=== PATIENT | male | born 1970 | race Caucasian/White ===

== ENCOUNTER 2022-01-12 00:15 | Observation (INO) | payer SELFPAY ==
[2022-01-12] MEDS ORDERED: Dextrose 50% Abboject 50 ML SYRINGE SLOW IVP PRN (00:28)
[2022-01-12] MEDS ORDERED: HumaLOG 300 UNITS/3 ML VIAL SC PRN ×2 (00:28)
[2022-01-12] MEDS ORDERED: Acetaminophen 325 MG TAB PO PRN (00:28)
[2022-01-12] MEDS ORDERED: Ondansetron ODT 4 MG TAB PO PRN (00:28)
[2022-01-12] MEDS ORDERED: Dextrose 5% in Water 1,000 ML IV PRN (00:28)
[2022-01-12] MEDS ORDERED: Nitroglycerin 0.4 MG TAB (25 Tab Bottle) SL PRN (00:28)
[2022-01-12] MEDS ORDERED: Ondansetron PF 4 MG/2 ML Vial IVP PRN (00:28)
[2022-01-12] MEDS ORDERED: hydrOXYzine 10 MG TAB PO PRN (00:36)
[2022-01-12 00:39] VITALS: BMI 32.1
[2022-01-12 05:20] LABS: Hemoglobin A1c 6.5 % (4.0-6.0)
[2022-01-12 05:32] LABS: Troponin I 0.044 ng/mL (< 0.028)
[2022-01-12] MEDS ORDERED: metFORMIN 500 MG TAB PO SCH ×3 (08:00→17:00)
[2022-01-12] MEDS ORDERED: Famotidine 20 MG TAB PO SCH (09:00)
[2022-01-12] MEDS ORDERED: Clopidogrel Bisulfate 75 MG TAB PO SCH (09:00)
[2022-01-12] MEDS ORDERED: Enoxaparin Sodium 40 MG/0.4 ML SYRINGE SC SCH (09:00)
[2022-01-12] MEDS ORDERED: Aspirin 81 mg Enteric Coated Tablet PO SCH (09:00)
[2022-01-12] MEDS ORDERED: Losartan 25 MG TAB PO SCH (09:00)
[2022-01-12] MEDS ORDERED: Fenofibrate 48 MG TAB PO SCH (09:00)
[2022-01-12 10:39] LABS: Troponin I 0.019 ng/mL (< 0.028)
[2022-01-12 12:18] VITALS: BP 173/91; TEMP 97.6
[2022-01-12] MEDS ORDERED: Atorvastatin Calcium 40 MG TAB PO SCH (21:00)
== END 2022-01-12 16:50 | disposition home or self-care (01) ==
LOC: 2NO 00:19
PROVIDERS: ADMIT Family Medicine; ATTEND Family Medicine
DX: R41.82 Altered mental status, unspecified (principal); I25.118 Atherosclerotic heart disease of native coronary artery with other forms of angina pectoris; E11.9 Type 2 diabetes mellitus without complications; I10 Essential (primary) hypertension; I25.2 Old myocardial infarction; E78.5 Hyperlipidemia, unspecified; F17.210 Nicotine dependence, cigarettes, uncomplicated; Z86.73 Personal history of transient ischemic attack (TIA), and cerebral infarction without residual deficits; Z79.02 Long term (current) use of antithrombotics/antiplatelets; Z79.82 Long term (current) use of aspirin; Z79.899 Other long term (current) drug therapy; Z88.5 Allergy status to narcotic agent; Z88.8 Allergy status to other drugs, medicaments and biological substances; Z95.5 Presence of coronary angioplasty implant and graft
CPT/HCPCS: 36415; 36416; 70551; 80061; 83036; 84484; 94760; 96372; G0378; J1650

== ENCOUNTER 2022-08-02 04:33 | Inpatient (IN) | payer SELFPAY ==
[2022-08-02] MEDS ORDERED: Nitroglycerin 0.4 MG TAB 1 EACH ONE (04:50)
[2022-08-02] MEDS ORDERED: Metoprolol Tartrate 5 MG/5 ML VIAL ONE (04:50)
[2022-08-02] MEDS ORDERED: Nitroglycerin 2% Ointment 1 INCH/1 GM Packet ONE (04:50)
[2022-08-02 05:37] LABS: #Eosinphils 0.2 thou/uL (0.0-0.7); #Lymphocytes 1.5 thou/uL (1.20-3.40); #Monocytes 0.5 thou/uL (0.11-0.59); #Neutrophils 6.5 thou/uL (1.40-6.50); %Basophils 0.4 % (0.0-1.0); %Eosinophils 2.1 % (0.0-10.0); %Lymphocytes 17.2 % (21.0-51.0); %Monocytes 5.8 % (0.0-10.0); %Neutrophils 74.5 % (42.0-75.0); Hemoglobin 13.4 g/dL (14.0-18.0); Mean Corpuscular HGB CONC 31.7 g/dL (32.0-36.0); Mean Corpuscular Hemoglobin 24.8 pg (27.0-31.0); Mean Corpuscular Volume 78.3 fl (78.0-98.0); Mean Platelet Volume 7.3 fL (7.4-10.4); Platelet Count 354 10x3/uL (130-400); RBC Distribution Width 14.9 % (11.5-14.5); White Blood Cell (WBC) Count 8.8 10x3/uL (4.8-10.8)
[2022-08-02 05:48] LABS: Prothrombin Time 13.1 sec (12.0-14.7)
[2022-08-02 05:49] LABS: PTT 26.6 sec (22.9-36.1)
[2022-08-02 05:56] LABS: ALT (SGPT) 28 U/L (8-55); AST (SGOT) 17 U/L (5-34); Albumin 3.7 g/dL (3.5-5.0); Alkaline Phosphatase 149 U/L (40-110); Anion Gap 16 mmol/L (10-20); BUN (Urea Nitrogen) 11 mg/dL (8.4-25.7); Bilirubin, Total 0.2 mg/dL (0.2-1.2); Calc. Creatinine Clearance 0 mL/min (70-130); Calcium 9.6 mg/dL (7.8-10.44); Carbon Dioxide 23 mmol/L (22-29); Chloride 100 mmol/L (98-107); Estimated GFR 98; Globulin 3.1 g/dL (2.4-3.5); Glucose 338 mg/dL (70-105); Lipase 5 U/L (8-78); Potassium 3.8 mmol/L (3.5-5.1); Protein, Total 6.8 g/dL (6.0-8.3); Sodium 135 mmol/L (136-145)
[2022-08-02 06:23] LABS: CKMB 5.6 ng/mL (0-6.6)
[2022-08-02] MEDS ORDERED: Acetaminophen 500 MG TAB ONE (07:08)
[2022-08-02] MEDS ORDERED: Ondansetron PF 4 MG/2 ML Vial IVP PRN (07:15)
[2022-08-02] MEDS ORDERED: Senokot S 8.6-50 MG TAB PO PRN (07:15)
[2022-08-02] MEDS ORDERED: hydrALAZINE 20 MG/ML VIAL SLOW IVP PRN (07:23)
[2022-08-02] MEDS ORDERED: Dextrose 5% in Water 1,000 ML IV PRN (07:24)
[2022-08-02] MEDS ORDERED: Dextrose 50% Abboject 50 ML SYRINGE SLOW IVP PRN (07:24)
[2022-08-02] MEDS ORDERED: Morphine 2 MG/ML VIAL SLOW IVP PRN (07:59)
[2022-08-02 08:24] LABS: Troponin I 0.344 ng/mL (< 0.028)
[2022-08-02] MEDS ORDERED: Losartan 25 MG TAB PO SCH (09:00)
[2022-08-02] MEDS ORDERED: Metoprolol Tartrate 50 MG TAB PO SCH ×2 (09:00→18:45)
[2022-08-02 09:45] VITALS: BMI 34.7
[2022-08-02] MEDS ORDERED: Ipratropium/Albuterol 3 ML NEB NEB PRN (10:01)
[2022-08-02] MEDS ORDERED: Nicotine 21 MG PATCH TD SCH ×2 (10:15→10:30)
[2022-08-02 12:19] LABS: Troponin I 0.366 ng/mL (< 0.028)
[2022-08-02] MEDS: Famotidine/PF 20 mg/2ml Vial SLOW IVP SCH ×2 (15:51→21:17)
[2022-08-02] MEDS: Fenofibrate 48 MG TAB PO SCH (15:51)
[2022-08-02] MEDS: Aspirin 81 mg Enteric Coated Tablet PO SCH (15:51)
[2022-08-02] MEDS: Clopidogrel Bisulfate 75 MG TAB PO SCH (15:51)
[2022-08-02 16:56] LABS: Acetaminophen Less than 10.0 mcg/mL (10.0-30.0); Alcohol Less than 10 mg/dL (Less than 10); Salicylate Less than 8.0 mg/dL (15.0-30.0)
[2022-08-02] MEDS: Nitroglycerin 2% Ointment 1 INCH/1 GM Packet TOP SCH (17:39)
[2022-08-02] MEDS ORDERED: Nitroglycerin 0.4 MG TAB (25 Tab Bottle) ONE (17:58)
[2022-08-02] MEDS ORDERED: Nitroglycerin 0.4 MG TAB (25 Tab Bottle) SL PRN (18:04)
[2022-08-02] MEDS ORDERED: Morphine 4 MG/ML VIAL SLOW IVP SCH (18:15)
[2022-08-02] MEDS ORDERED: hydrALAZINE 20 MG/ML VIAL SLOW IVP SCH (18:15)
[2022-08-02] MEDS: Metoprolol Tartrate 50 MG TAB PO SCH (19:05)
[2022-08-02] MEDS ORDERED: Atorvastatin Calcium 40 MG TAB PO SCH (21:00)
[2022-08-02] MEDS: Enoxaparin 120 MG/0.8 ML SYRINGE SC SCH (21:16)
[2022-08-02] MEDS: Acetaminophen 325 MG TAB PO PRN (21:17)
[2022-08-02] MEDS: HumaLOG 300 UNITS/3 ML VIAL SC PRN (21:17)
[2022-08-02] MEDS: glipiZIDE 5 MG TAB PO SCH (21:17)
[2022-08-03] MEDS: HumaLOG 300 UNITS/3 ML VIAL SC PRN ×3 (00:06→12:21)
[2022-08-03 05:08] LABS: #Eosinphils 0.2 thou/uL (0.0-0.7); #Lymphocytes 2.5 thou/uL (1.20-3.40); #Monocytes 0.6 thou/uL (0.11-0.59); #Neutrophils 4.8 thou/uL (1.40-6.50); %Basophils 0.3 % (0.0-1.0); %Eosinophils 2.9 % (0.0-10.0); %Monocytes 7.2 % (0.0-10.0); %Neutrophils 58.6 % (42.0-75.0); Hemoglobin 13.1 g/dL (14.0-18.0); Mean Corpuscular HGB CONC 32.3 g/dL (32.0-36.0); Mean Corpuscular Volume 77.5 fl (78.0-98.0); Mean Platelet Volume 7.8 fL (7.4-10.4); Platelet Count 357 10x3/uL (130-400); Red Blood Cell (RBC) Count 5.24 mill/uL (4.70-6.10); White Blood Cell (WBC) Count 8.2 10x3/uL (4.8-10.8)
[2022-08-03 05:32] LABS: ALT (SGPT) 26 U/L (8-55); AST (SGOT) 16 U/L (5-34); Albumin 3.7 g/dL (3.5-5.0); Alkaline Phosphatase 136 U/L (40-110); Anion Gap 11 mmol/L (10-20); BUN (Urea Nitrogen) 10 mg/dL (8.4-25.7); Bilirubin, Total 0.3 mg/dL (0.2-1.2); Calc. Creatinine Clearance 161 mL/min (70-130); Calcium 9.3 mg/dL (7.8-10.44); Carbon Dioxide 26 mmol/L (22-29); Cardiac Risk 7.6 (Less than 4.5); Chloride 102 mmol/L (98-107); Cholesterol 182 mg/dl (< 200 Desired); Estimated GFR 106; Globulin 2.8 g/dL (2.4-3.5); Glucose 154 mg/dL (70-105); HDL Cholesterol 24 mg/dL (>60 Neg Risk); LDL Cholesterol, Calculated 106 mg/dL; Potassium 3.9 mmol/L (3.5-5.1); Protein, Total 6.5 g/dL (6.0-8.3); Sodium 135 mmol/L (136-145); Triglycerides 259 mg/dL (Less than 150)
[2022-08-03] MEDS: Nitroglycerin 2% Ointment 1 INCH/1 GM Packet TOP SCH (06:31)
[2022-08-03] MEDS ORDERED: FLU VACC QS2022-23(6MOS UP)/PF 60 MCG/0.5 ML SYRINGE IM ONE (09:00)
[2022-08-03] MEDS ORDERED: Losartan 25 MG TAB PO SCH (09:00)
[2022-08-03] MEDS: Famotidine/PF 20 mg/2ml Vial SLOW IVP SCH ×2 (10:12→20:57)
[2022-08-03] MEDS: Fenofibrate 48 MG TAB PO SCH (10:12)
[2022-08-03] MEDS: Enoxaparin 120 MG/0.8 ML SYRINGE SC SCH ×2 (10:13→20:58)
[2022-08-03] MEDS: Aspirin 81 mg Enteric Coated Tablet PO SCH (10:13)
[2022-08-03] MEDS: Metoprolol Tartrate 50 MG TAB PO SCH ×2 (10:13→20:57)
[2022-08-03] MEDS: Clopidogrel Bisulfate 75 MG TAB PO SCH (10:13)
[2022-08-03] MEDS: glipiZIDE 5 MG TAB PO SCH ×2 (10:13→20:58)
[2022-08-03] MEDS: Nicotine 21 MG PATCH TD SCH (10:14)
[2022-08-03] MEDS: Acetaminophen 325 MG TAB PO PRN (16:56)
[2022-08-03] MEDS: Losartan 25 MG TAB PO SCH (20:58)
[2022-08-03] MEDS ORDERED: Atorvastatin Calcium 40 MG TAB PO SCH (21:00)
[2022-08-04 05:00] LABS: Anion Gap 12 mmol/L (10-20); BUN (Urea Nitrogen) 11 mg/dL (8.4-25.7); Calc. Creatinine Clearance 155 mL/min (70-130); Calcium 9.3 mg/dL (7.8-10.44); Carbon Dioxide 24 mmol/L (22-29); Chloride 104 mmol/L (98-107); Estimated GFR 105; Glucose 210 mg/dL (70-105); Magnesium 1.8 mg/dL (1.6-2.6); Potassium 3.8 mmol/L (3.5-5.1); Sodium 136 mmol/L (136-145)
[2022-08-04] MEDS: HumaLOG 300 UNITS/3 ML VIAL SC PRN (06:37)
[2022-08-04] MEDS: Enoxaparin 120 MG/0.8 ML SYRINGE SC SCH (10:03)
[2022-08-04] MEDS: Nicotine 21 MG PATCH TD SCH (10:04)
[2022-08-04] MEDS: Clopidogrel Bisulfate 75 MG TAB PO SCH (10:04)
[2022-08-04] MEDS: Metoprolol Tartrate 50 MG TAB PO SCH (10:04)
[2022-08-04] MEDS: Fenofibrate 48 MG TAB PO SCH (10:04)
[2022-08-04] MEDS: Losartan 25 MG TAB PO SCH (10:04)
[2022-08-04] MEDS: Aspirin 81 mg Enteric Coated Tablet PO SCH (10:04)
[2022-08-04] MEDS: glipiZIDE 5 MG TAB PO SCH (10:05)
[2022-08-04] MEDS: Famotidine/PF 20 mg/2ml Vial SLOW IVP SCH (10:05)
[2022-08-04 11:30] VITALS: BP 160/94; TEMP 98.9
== END 2022-08-04 15:34 | disposition home or self-care (01) | DRG 282 ==
LOC: ERS 04:33 → SUATTDRO 04:33 → 2NO 07:59
PROVIDERS: ADMIT Internal Medicine; ATTEND Internal Medicine
DX: I16.1 Hypertensive emergency (principal); I21.A1 Myocardial infarction type 2; F17.210 Nicotine dependence, cigarettes, uncomplicated; E11.65 Type 2 diabetes mellitus with hyperglycemia; J44.9 Chronic obstructive pulmonary disease, unspecified; F19.10 Other psychoactive substance abuse, uncomplicated; I10 Essential (primary) hypertension; E78.5 Hyperlipidemia, unspecified; I25.10 Atherosclerotic heart disease of native coronary artery without angina pectoris; I25.5 Ischemic cardiomyopathy; Z95.5 Presence of coronary angioplasty implant and graft; Z86.73 Personal history of transient ischemic attack (TIA), and cerebral infarction without residual deficits; Z88.8 Allergy status to other drugs, medicaments and biological substances; Z79.82 Long term (current) use of aspirin; Z79.899 Other long term (current) drug therapy; Z79.84 Long term (current) use of oral hypoglycemic drugs; Z91.14 Patient's other noncompliance with medication regimen; I25.2 Old myocardial infarction; Z20.822 Contact with and (suspected) exposure to COVID-19
CPT/HCPCS: 36415; 36416; 71045; 80048; 80053; 80061; 80307; 82553; 83036; 83690; 83735; 83880; 84484; 85025; 85610; 85730; 90471; 90686; 93005; 93010; 93306; 96374; G0008; J0360; J1650; J1815; J2272; S0028; U0003; U0005

== ENCOUNTER 2023-01-21 19:00 | Inpatient (IN) | payer SELFPAY ==
[2023-01-21 20:42] LABS: #Basophils 0.1 thou/uL (0.0-0.2); #Eosinphils 0.2 thou/uL (0.0-0.7); #Monocytes 0.6 thou/uL (0.11-0.59); #Neutrophils 7.1 thou/uL (1.40-6.50); %Basophils 0.7 % (0.0-1.0); %Eosinophils 1.8 % (0.0-10.0); %Lymphocytes 22.5 % (21.0-51.0); %Monocytes 5.8 % (0.0-10.0); %Neutrophils 68.9 % (42.0-75.0); Hemoglobin 13.8 g/dL (14.0-18.0); Mean Corpuscular HGB CONC 31.8 g/dL (32.0-36.0); Mean Corpuscular Volume 75.5 fl (78.0-98.0); Mean Platelet Volume 8.9 fL (7.4-10.4); Platelet Count 432 10x3/uL (130-400); RBC Distribution Width 15.6 % (11.5-14.5); Red Blood Cell (RBC) Count 5.75 mill/uL (4.70-6.10); White Blood Cell (WBC) Count 10.3 10x3/uL (4.8-10.8)
[2023-01-21] MEDS ORDERED: Aspirin 325 MG TAB ONE (21:20)
[2023-01-21] MEDS ORDERED: cefTRIAXone (ROCEPHIN) 2 GM VIAL ONE (21:20)
[2023-01-21] MEDS ORDERED: Nitroglycerin 0.4mg/Hour PATCH ONE (21:20)
[2023-01-21] MEDS ORDERED: methylPREDNISolone Sod Succ/PF 125 MG/2 ML VIAL ONE (21:20)
[2023-01-21] MEDS ORDERED: Nitroglycerin 2% Ointment 1 INCH/1 GM Packet ONE (21:21)
[2023-01-21] MEDS ORDERED: Albuterol 2.5 MG/0.5 ML NEB ONE (21:26)
[2023-01-21 21:55] LABS: ALT (SGPT) 29 U/L (8-55); AST (SGOT) 23 U/L (5-34); Alkaline Phosphatase 152 U/L (40-110); Anion Gap 19 mmol/L (10-20); BUN (Urea Nitrogen) 13 mg/dL (8.4-25.7); Bilirubin, Total 0.2 mg/dL (0.2-1.2); Calc. Creatinine Clearance 0 mL/min (70-130); Calcium 9.5 mg/dL (7.8-10.44); Carbon Dioxide 20 mmol/L (22-29); Chloride 102 mmol/L (98-107); Estimated GFR 91; Globulin 3.6 g/dL (2.4-3.5); Glucose 312 mg/dL (70-105); Potassium 4.7 mmol/L (3.5-5.1); Protein, Total 7.6 g/dL (6.0-8.3); Sodium 137 mmol/L (136-145)
[2023-01-21] MEDS ORDERED: Magnesium 2 GM/50 ML BAG (IN WATER) ONE (22:33)
[2023-01-21] MEDS ORDERED: Azithromycin 500 MG VIAL ONE (22:52)
[2023-01-21 23:19] LABS: CKMB 2.5 ng/mL (0-6.6)
[2023-01-21] MEDS ORDERED: Furosemide 40 MG/4 ML VIAL SLOW IVP SCH (23:45)
[2023-01-21] MEDS ORDERED: Ipratropium/Albuterol 3 ML NEB NEB PRN (23:55)
[2023-01-21] MEDS ORDERED: Dextrose 5% in Water 1,000 ML IV PRN (23:57)
[2023-01-21] MEDS ORDERED: HumaLOG 300 UNITS/3 ML VIAL SC PRN (23:57)
[2023-01-21] MEDS ORDERED: Dextrose 50% Abboject 50 ML SYRINGE SLOW IVP PRN (23:57)
[2023-01-21] MEDS ORDERED: Ondansetron ODT 4 MG TAB PO PRN (23:57)
[2023-01-21] MEDS ORDERED: Glucagon 1 MG/ML KIT IM PRN (23:57)
[2023-01-21] MEDS ORDERED: Ondansetron PF 4 MG/2 ML Vial IVP PRN (23:57)
[2023-01-21] MEDS ORDERED: Acetaminophen 650 MG Suppository PR PRN (23:57)
[2023-01-22] MEDS ORDERED: Furosemide 40 MG/4 ML VIAL ONE ×2 (00:37→09:41)
[2023-01-22 00:45] LABS: Troponin I 0.192 ng/mL (< 0.028)
[2023-01-22] MEDS ORDERED: hydrALAZINE 20 MG/ML VIAL SLOW IVP PRN (01:19)
[2023-01-22] MEDS ORDERED: HumaLOG 300 UNITS/3 ML VIAL ONE (01:29)
[2023-01-22] MEDS: HumaLOG 300 UNITS/3 ML VIAL SC PRN ×3 (01:30→06:46)
[2023-01-22] MEDS ORDERED: Ipratropium/Albuterol 3 ML NEB ONE ×3 (02:45→10:27)
[2023-01-22] MEDS: Ipratropium/Albuterol 3 ML NEB NEB SCH ×6 (02:54→22:16)
[2023-01-22 02:59] LABS: #Monocytes 0.1 thou/uL (0.11-0.59); #Neutrophils 8.8 thou/uL (1.40-6.50); %Basophils 0.4 % (0.0-1.0); %Eosinophils 0.1 % (0.0-10.0); %Lymphocytes 6.6 % (21.0-51.0); %Monocytes 0.7 % (0.0-10.0); %Neutrophils 91.6 % (42.0-75.0); Hemoglobin 13.6 g/dL (14.0-18.0); Mean Corpuscular HGB CONC 31.1 g/dL (32.0-36.0); Mean Corpuscular Hemoglobin 23.8 pg (27.0-31.0); Mean Corpuscular Volume 76.6 fl (78.0-98.0); Mean Platelet Volume 9.1 fL (7.4-10.4); Platelet Count 419 10x3/uL (130-400); RBC Distribution Width 15.6 % (11.5-14.5); Red Blood Cell (RBC) Count 5.72 mill/uL (4.70-6.10); White Blood Cell (WBC) Count 9.6 10x3/uL (4.8-10.8)
[2023-01-22 03:26] LABS: Troponin I 0.185 ng/mL (< 0.028)
[2023-01-22 03:35] LABS: Anion Gap 21 mmol/L (10-20); BUN (Urea Nitrogen) 15 mg/dL (8.4-25.7); Calc. Creatinine Clearance 0 mL/min (70-130); Calcium 9.4 mg/dL (7.8-10.44); Carbon Dioxide 19 mmol/L (22-29); Chloride 99 mmol/L (98-107); Estimated GFR 72; Magnesium 2.4 mg/dL (1.6-2.6); Potassium 4.2 mmol/L (3.5-5.1); Sodium 135 mmol/L (136-145)
[2023-01-22 03:37] LABS: Glucose 485 mg/dL (70-105)
[2023-01-22 04:20] VITALS: BMI 35.4
[2023-01-22] MEDS: Acetaminophen 325 MG TAB PO PRN ×2 (04:30→16:43)
[2023-01-22] MEDS ORDERED: Acetaminophen 325 MG TAB ONE (04:35)
[2023-01-22 05:18] LABS: Amphetamine Detected (NotDetected); Barbiturates Screen Not Detected (NotDetected); Benzodiazepine Screen Not Detected (NotDetected); Cocaine Metabolite Screen Not Detected (NotDetected); Methadone Not Detected (NotDetected); Methamphetamine Detected (NotDetected); Opiate Screen Not Detected (NotDetected); Oxycodone Screen Not Detected (NotDetected); Phencyclidine (PCP) Not Detected (NotDetected); THC/Cannabinoid Screen Not Detected (NotDetected); Tricyclic Screen Not Detected (NotDetected)
[2023-01-22] MEDS: Enoxaparin 120 MG/0.8 ML SYRINGE SC SCH ×2 (09:52→20:18)
[2023-01-22] MEDS: Furosemide 40 MG/4 ML VIAL SLOW IVP SCH (09:53)
[2023-01-22] MEDS ORDERED: Iopamidol 370 76% 100 ML VIAL ONE (10:16)
[2023-01-22] MEDS: Azithromycin 500 MG in Sodium Chloride 0.9% 250 ML 250 ML IVPB SCH (20:18)
[2023-01-22] MEDS ORDERED: HumaLOG 300 UNITS/3 ML VIAL SC SCH ×2 (21:15→21:30)
[2023-01-22] MEDS ORDERED: Calcium Carbonate 500 MG ChewTAB PO SCH (21:30)
[2023-01-23] MEDS: Ipratropium/Albuterol 3 ML NEB NEB SCH ×6 (02:15→22:17)
[2023-01-23] MEDS: HumaLOG 300 UNITS/3 ML VIAL SC PRN (06:15)
[2023-01-23] MEDS: Enoxaparin 120 MG/0.8 ML SYRINGE SC SCH ×2 (08:53→20:21)
[2023-01-23] MEDS: Aspirin 81 mg Enteric Coated Tablet PO SCH (08:53)
[2023-01-23] MEDS: Fenofibrate 48 MG TAB PO SCH (08:53)
[2023-01-23] MEDS: Furosemide 40 MG/4 ML VIAL SLOW IVP SCH (08:54)
[2023-01-23] MEDS ORDERED: Nicotine 21 MG PATCH TD SCH (10:00)
[2023-01-23] MEDS: Insulin Regular 300 UNITS/3 ML VIAL SC PRN ×2 (11:39→17:50)
[2023-01-23] MEDS: hydrALAZINE 25 MG TAB PO SCH ×2 (15:36→20:20)
[2023-01-23] MEDS: Metoprolol Tartrate 100 MG TAB PO SCH (20:20)
[2023-01-23] MEDS: Azithromycin 500 MG in Sodium Chloride 0.9% 250 ML 250 ML IVPB SCH (20:21)
[2023-01-23] MEDS ORDERED: HumaLOG 300 UNITS/3 ML VIAL SC PRN (21:45)
[2023-01-24] MEDS: Ipratropium/Albuterol 3 ML NEB NEB SCH ×3 (02:22→10:34)
[2023-01-24 05:39] LABS: #Basophils 0.1 thou/uL (0.0-0.2); #Eosinphils 0.2 thou/uL (0.0-0.7); #Monocytes 0.7 thou/uL (0.11-0.59); #Neutrophils 7.5 thou/uL (1.40-6.50); %Basophils 0.6 % (0.0-1.0); %Eosinophils 1.4 % (0.0-10.0); %Lymphocytes 21.7 % (21.0-51.0); %Monocytes 6.4 % (0.0-10.0); %Neutrophils 69.2 % (42.0-75.0); Mean Corpuscular HGB CONC 30.1 g/dL (32.0-36.0); Mean Corpuscular Hemoglobin 23.1 pg (27.0-31.0); Mean Corpuscular Volume 76.7 fl (78.0-98.0); Mean Platelet Volume 9.4 fL (7.4-10.4); Platelet Count 403 10x3/uL (130-400); RBC Distribution Width 15.9 % (11.5-14.5); Red Blood Cell (RBC) Count 5.63 mill/uL (4.70-6.10); White Blood Cell (WBC) Count 10.9 10x3/uL (4.8-10.8)
[2023-01-24 06:09] LABS: Anion Gap 14 mmol/L (10-20); BUN (Urea Nitrogen) 18 mg/dL (8.4-25.7); Calc. Creatinine Clearance 126 mL/min (70-130); Calcium 9.6 mg/dL (7.8-10.44); Carbon Dioxide 26 mmol/L (22-29); Chloride 97 mmol/L (98-107); Estimated GFR 85; Glucose 366 mg/dL (70-105); Potassium 4.2 mmol/L (3.5-5.1); Sodium 133 mmol/L (136-145)
[2023-01-24] MEDS: Insulin Regular 300 UNITS/3 ML VIAL SC PRN (06:12)
[2023-01-24] MEDS: Furosemide 40 MG/4 ML VIAL SLOW IVP SCH (07:47)
[2023-01-24] MEDS: hydrALAZINE 25 MG TAB PO SCH (07:47)
[2023-01-24] MEDS: Fenofibrate 48 MG TAB PO SCH (07:48)
[2023-01-24] MEDS: Aspirin 81 mg Enteric Coated Tablet PO SCH (07:48)
[2023-01-24] MEDS: Metoprolol Tartrate 100 MG TAB PO SCH (07:48)
[2023-01-24 07:49] VITALS: BP 143/83
[2023-01-24] MEDS: Enoxaparin 120 MG/0.8 ML SYRINGE SC SCH (07:49)
[2023-01-24 08:28] VITALS: TEMP 97.7
[2023-01-24] MEDS ORDERED: Insulin Glargine 30 UNITS/0.3 ML VIAL SC SCH (09:00)
== END 2023-01-24 11:53 | disposition home or self-care (01) | DRG 280 ==
LOC: ERS 19:00 → OBSVTOIN 23:08 → ERHOLD 23:08 → 2SW 01-22 11:49
PROVIDERS: ADMIT Student in an Organized Health Care Education/Training Program; ATTEND Hospitalist
DX: I11.0 Hypertensive heart disease with heart failure (principal); I50.33 Acute on chronic diastolic (congestive) heart failure; I21.A1 Myocardial infarction type 2; J96.01 Acute respiratory failure with hypoxia; I16.1 Hypertensive emergency; J44.1 Chronic obstructive pulmonary disease with (acute) exacerbation; J98.11 Atelectasis; F17.210 Nicotine dependence, cigarettes, uncomplicated; I42.0 Dilated cardiomyopathy; I25.10 Atherosclerotic heart disease of native coronary artery without angina pectoris; I16.0 Hypertensive urgency; E11.65 Type 2 diabetes mellitus with hyperglycemia; F15.10 Other stimulant abuse, uncomplicated; Z20.822 Contact with and (suspected) exposure to COVID-19; E78.00 Pure hypercholesterolemia, unspecified; Z95.5 Presence of coronary angioplasty implant and graft; I25.2 Old myocardial infarction; Z98.890 Other specified postprocedural states; Z86.73 Personal history of transient ischemic attack (TIA), and cerebral infarction without residual deficits; Z88.8 Allergy status to other drugs, medicaments and biological substances; Z79.82 Long term (current) use of aspirin; Z79.899 Other long term (current) drug therapy; Z79.4 Long term (current) use of insulin; Z91.199 Patient's noncompliance with other medical treatment and regimen due to unspecified reason
CPT/HCPCS: 36415; 36416; 71045; 71275; 80048; 80053; 80306; 82553; 83605; 83735; 83880; 84145; 84484; 85025; 85379; 86140; 87070; 87205; 87635; 93005; 93798; 94640; 96365; 96367; 96372; 96375; 97139; G0378; J0360; J0456; J0696; J1650; J1815; J1940; J2930; J3475; J7050; J7611; J7620; Q9967

== ENCOUNTER 2024-03-23 20:32 | Inpatient (IN) | payer OTHER, SELFPAY ==
[2024-03-23] MEDS ORDERED: Acetaminophen 500 MG TAB ONE (22:13)
[2024-03-23] MEDS ORDERED: Aspirin Chewable 81 MG TAB ONE (22:13)
[2024-03-23] MEDS ORDERED: Nitroglycerin 2% Ointment 1 INCH/1 GM Packet ONE (22:13)
[2024-03-23 22:41] LABS: #Basophils 0.05 10x3/uL (0.0-0.2); %Basophils 0.8 % (0.0-1.0); %Eosinophils 2.5 % (0.0-10.0); %Lymphocytes 35.6 % (21.0-51.0); %Monocytes 8.3 % (0.0-10.0); %Neutrophils 52.6 % (42.0-75.0); Hematocrit 40.4 % (42.0-52.0); Mean Corpuscular HGB CONC 32.2 g/dL (32.0-36.0); Mean Corpuscular Hemoglobin 26.5 pg (27.0-31.0); Mean Corpuscular Volume 82.4 fL (78.0-98.0); Mean Platelet Volume 8.7 fL (7.4-10.4); Platelet Count 276 10x3/uL (130-400)
[2024-03-23 23:04] LABS: Troponin I 0.028 ng/mL (< 0.028)
[2024-03-23 23:18] LABS: ALT (SGPT) 14 U/L (8-55); AST (SGOT) 13 U/L (5-34); Albumin 3.6 g/dL (3.5-5.0); Alkaline Phosphatase 130 U/L (40-110); Anion Gap 12 mmol/L (10-20); BUN (Urea Nitrogen) 14 mg/dL (8.4-25.7); Bilirubin, Total 0.4 mg/dL (0.2-1.2); Calc. Creatinine Clearance 0 mL/min (70-130); Calcium 9.7 mg/dL (7.8-10.44); Carbon Dioxide 27 mmol/L (22-29); Chloride 106 mmol/L (98-107); Estimated GFR 106; Globulin 2.7 g/dL (2.4-3.5); Glucose 164 mg/dL (70-105); Lipase 15 U/L (8-78); Potassium 4.2 mmol/L (3.5-5.1); Protein, Total 6.3 g/dL (6.0-8.3); Sodium 141 mmol/L (136-145)
[2024-03-24] MEDS ORDERED: Dextrose 5% in Water 1,000 ML IV PRN (00:42)
[2024-03-24] MEDS ORDERED: Ondansetron PF 4 MG/2 ML Vial IVP PRN (00:42)
[2024-03-24] MEDS ORDERED: traMADol HCl 50 MG TAB PO PRN (00:42)
[2024-03-24] MEDS ORDERED: Acetaminophen 325 MG TAB PO PRN (00:42)
[2024-03-24] MEDS ORDERED: Insulin Lispro 100 UNIT/ML 10 ML VIAL SC PRN (00:42)
[2024-03-24] MEDS ORDERED: Dextrose 50% Abboject 50 ML SYRINGE SLOW IVP PRN (00:42)
[2024-03-24] MEDS ORDERED: Glucagon 1 MG/ML KIT IM PRN (00:42)
[2024-03-24] MEDS ORDERED: hydrALAZINE 20 MG/ML VIAL ONE (02:16)
[2024-03-24] MEDS ORDERED: hydrALAZINE 20 MG/ML VIAL SLOW IVP PRN (02:29)
[2024-03-24 03:46] LABS: #Basophils 0.05 10x3/uL (0.0-0.2); %Basophils 0.8 % (0.0-1.0); %Eosinophils 3.3 % (0.0-10.0); %Lymphocytes 38.3 % (21.0-51.0); %Monocytes 7.8 % (0.0-10.0); %Neutrophils 49.6 % (42.0-75.0); Hematocrit 39.9 % (42.0-52.0); Mean Corpuscular HGB CONC 32.6 g/dL (32.0-36.0); Mean Corpuscular Hemoglobin 26.4 pg (27.0-31.0); Mean Corpuscular Volume 81.1 fL (78.0-98.0); Mean Platelet Volume 9.2 fL (7.4-10.4); Platelet Count 290 10x3/uL (130-400); Red Blood Cell (RBC) Count 4.92 mill/uL (4.70-6.10)
[2024-03-24 04:02] LABS: Anion Gap 15 mmol/L (10-20); BUN (Urea Nitrogen) 15 mg/dL (8.4-25.7); Calc. Creatinine Clearance 0 mL/min (70-130); Calcium 9.7 mg/dL (7.8-10.44); Carbon Dioxide 22 mmol/L (22-29); Chloride 107 mmol/L (98-107); Estimated GFR 110; Glucose 132 mg/dL (70-105); Potassium 3.7 mmol/L (3.5-5.1); Sodium 140 mmol/L (136-145)
[2024-03-24 04:09] LABS: Troponin I 0.041 ng/mL (< 0.028)
[2024-03-24] MEDS: Nicotine 21 MG PATCH TD SCH (05:24)
[2024-03-24 07:19] LABS: Troponin I 0.024 ng/mL (< 0.028)
[2024-03-24] MEDS ORDERED: Aspirin Chewable 81 MG TAB ONE (08:43)
[2024-03-24] MEDS ORDERED: levETIRAcetam 500 MG TAB ONE ×2 (08:43→21:09)
[2024-03-24] MEDS ORDERED: Atorvastatin Calcium 40 MG TAB ONE (08:43)
[2024-03-24] MEDS: Insulin NPH Human Isophane 100 UNITS/ML (10 ML VIAL) SC SCH (10:04)
[2024-03-24] MEDS: Atorvastatin Calcium 40 MG TAB PO SCH (10:16)
[2024-03-24] MEDS: Aspirin Chewable 81 MG TAB PO SCH (10:16)
[2024-03-24] MEDS: levETIRAcetam 500 MG TAB PO SCH (10:17)
[2024-03-24 10:37] VITALS: BMI 29.5
[2024-03-24] MEDS: Hydrochlorothiazide 25 MG TAB PO SCH (15:07)
[2024-03-24] MEDS ORDERED: HYDROcodone/Acetaminophen 5/325 mg Tablet PO PRN (17:52)
[2024-03-24] MEDS: metFORMIN 500 MG TAB PO SCH (21:17)
[2024-03-25 05:29] LABS: #Basophils 0.03 10x3/uL (0.0-0.2); %Basophils 0.5 % (0.0-1.0); %Eosinophils 3.2 % (0.0-10.0); %Lymphocytes 28.1 % (21.0-51.0); %Monocytes 7.2 % (0.0-10.0); %Neutrophils 60.7 % (42.0-75.0); Hematocrit 41.6 % (42.0-52.0); Hemoglobin 13.3 g/dL (14.0-18.0); Mean Corpuscular Hemoglobin 26.2 pg (27.0-31.0); Mean Corpuscular Volume 82.1 fL (78.0-98.0); Platelet Count 270 10x3/uL (130-400); RBC Distribution Width 16.1 % (11.5-14.5); Red Blood Cell (RBC) Count 5.07 mill/uL (4.70-6.10)
[2024-03-25 05:42] LABS: Anion Gap 13 mmol/L (10-20); BUN (Urea Nitrogen) 14 mg/dL (8.4-25.7); Calc. Creatinine Clearance 139 mL/min (70-130); Calcium 9.5 mg/dL (7.8-10.44); Carbon Dioxide 23 mmol/L (22-29); Chloride 107 mmol/L (98-107); Estimated GFR 106; Glucose 234 mg/dL (70-105); Potassium 4.2 mmol/L (3.5-5.1); Sodium 139 mmol/L (136-145)
[2024-03-25] MEDS: Furosemide 40 MG (4 mL) VIAL SLOW IVP SCH (17:32)
[2024-03-25 20:01] LABS: Acetaminophen Less than 10 mcg/mL (Less than 10); Alcohol Less than 10.0 mg/dL (Less than 10); Salicylate Less than 8.0 mg/dL (Less than 8.0)
[2024-03-26 04:54] LABS: #Basophils 0.07 10x3/uL (0.0-0.2); %Basophils 0.9 % (0.0-1.0); %Eosinophils 3.6 % (0.0-10.0); %Lymphocytes 25.6 % (21.0-51.0); %Monocytes 7.6 % (0.0-10.0); Hematocrit 45.4 % (42.0-52.0); Hemoglobin 14.7 g/dL (14.0-18.0); Mean Corpuscular HGB CONC 32.4 g/dL (32.0-36.0); Mean Corpuscular Hemoglobin 26.5 pg (27.0-31.0); Mean Corpuscular Volume 81.9 fL (78.0-98.0); Platelet Count 331 10x3/uL (130-400); RBC Distribution Width 16.2 % (11.5-14.5); Red Blood Cell (RBC) Count 5.54 mill/uL (4.70-6.10)
[2024-03-26 04:56] LABS: Anion Gap 14 mmol/L (10-20); BUN (Urea Nitrogen) 18 mg/dL (8.4-25.7); Calc. Creatinine Clearance 125 mL/min (70-130); Calcium 9.8 mg/dL (7.8-10.44); Carbon Dioxide 24 mmol/L (22-29); Chloride 102 mmol/L (98-107); Estimated GFR 103; Glucose 224 mg/dL (70-105); Potassium 3.3 mmol/L (3.5-5.1); Sodium 137 mmol/L (136-145)
[2024-03-26] MEDS ORDERED: Furosemide 20 MG TAB PO SCH (09:15)
[2024-03-26] MEDS: Potassium Chloride 20 MEQ TAB PO SCH (10:26)
[2024-03-26] MEDS: Furosemide 40 MG TAB PO SCH (10:26)
[2024-03-26] MEDS: Metoprolol Tartrate 25 MG TAB PO SCH ×2 (10:27→20:59)
[2024-03-26] MEDS: Insulin Lispro 100 UNIT/ML 10 ML VIAL SC PRN (13:27)
[2024-03-26] MEDS: Furosemide 40 MG (4 mL) VIAL SLOW IVP SCH (20:58)
[2024-03-27 05:00] LABS: #Basophils 0.07 10x3/uL (0.0-0.2); %Basophils 0.8 % (0.0-1.0); %Lymphocytes 23.6 % (21.0-51.0); %Monocytes 8.1 % (0.0-10.0); %Neutrophils 64.3 % (42.0-75.0); Hematocrit 45.9 % (42.0-52.0); Hemoglobin 14.9 g/dL (14.0-18.0); Mean Corpuscular HGB CONC 32.5 g/dL (32.0-36.0); Mean Corpuscular Hemoglobin 26.2 pg (27.0-31.0); Mean Corpuscular Volume 80.8 fL (78.0-98.0); Mean Platelet Volume 9.2 fL (7.4-10.4); Platelet Count 316 10x3/uL (130-400); RBC Distribution Width 15.9 % (11.5-14.5); Red Blood Cell (RBC) Count 5.68 mill/uL (4.70-6.10)
[2024-03-27 06:05] LABS: Anion Gap 16 mmol/L (10-20); BUN (Urea Nitrogen) 25 mg/dL (8.4-25.7); Calc. Creatinine Clearance 106 mL/min (70-130); Calcium 10.1 mg/dL (7.8-10.44); Carbon Dioxide 25 mmol/L (22-29); Chloride 101 mmol/L (98-107); Estimated GFR 87; Glucose 267 mg/dL (70-105); Potassium 3.5 mmol/L (3.5-5.1); Sodium 138 mmol/L (136-145)
[2024-03-27] MEDS ORDERED: Furosemide 40 MG TAB PO SCH (07:30)
[2024-03-27 12:18] VITALS: BP 126/82; TEMP 98.2
== END 2024-03-27 16:08 | DRG 291 ==
LOC: ERS 20:32 → EEVIPCON 03-24 00:41 → ERHOLD 03-24 00:41 → 2SW 03-25 00:46 → OBSVTOIN 03-26 16:02
PROVIDERS: ADMIT Student in an Organized Health Care Education/Training Program; ATTEND Hospitalist
DX: I11.0 Hypertensive heart disease with heart failure (principal); I50.43 Acute on chronic combined systolic (congestive) and diastolic (congestive) heart failure; F15.10 Other stimulant abuse, uncomplicated; I25.10 Atherosclerotic heart disease of native coronary artery without angina pectoris; E11.9 Type 2 diabetes mellitus without complications; J44.9 Chronic obstructive pulmonary disease, unspecified; E66.3 Overweight; I25.5 Ischemic cardiomyopathy; Z95.818 Presence of other cardiac implants and grafts; Z86.73 Personal history of transient ischemic attack (TIA), and cerebral infarction without residual deficits; Z68.29 Body mass index [BMI] 29.0-29.9, adult
CPT/HCPCS: 36415; 36416; 70450; 71045; 80048; 80053; 80307; 83690; 83880; 84484; 85025; 86141; 93005; 93010; 93306; J0360; J1815; J1940

== ENCOUNTER 2024-05-15 16:02 | Emergency (ER) | payer OTHER, SELFPAY ==
[~2024-05-15 16:02] MED LIST: Iopamidol-370 76% 500 ML MDV (1 ML CHARGE) ONE
[2024-05-15 16:35] LABS: Actual Bicarbonate (HCO3v) 26.2 mEq/L (22-28); Analyzer IN Cardio ER; Base Excess 1.1 mEq/L (-2.0 to +3.0); Calcium, Ionized (venous) 1.18 mmol/L (1.16-1.32); Chloride (VBG) 95 mmol/L (98-106); Hematocrit-VBG 47 % (42.0-52.0); Hemoglobin (Hb) 15.9 g/dL (13.1-17.2); Potassium (VBG) 4.27 mmol/L (3.70-5.30); Sodium 136 mmol/L (133-146); pH (venous) 7.403 (7.32-7.43)
[2024-05-15 16:55] LABS: #Basophils 0.05 10x3/uL (0.0-0.2); %Basophils 0.8 % (0.0-1.0); %Eosinophils 2.1 % (0.0-10.0); %Lymphocytes 39.8 % (21.0-51.0); %Monocytes 6.6 % (0.0-10.0); %Neutrophils 50.5 % (42.0-75.0); Hematocrit 44.4 % (42.0-52.0); Hemoglobin 15.3 g/dL (14.0-18.0); Mean Corpuscular HGB CONC 34.5 g/dL (32.0-36.0); Mean Corpuscular Hemoglobin 27.3 pg (27.0-31.0); Mean Corpuscular Volume 79.1 fL (78.0-98.0); Mean Platelet Volume 9.5 fL (7.4-10.4); Platelet Count 304 10x3/uL (130-400); RBC Distribution Width 13.5 % (11.5-14.5); Red Blood Cell (RBC) Count 5.61 mill/uL (4.70-6.10)
[2024-05-15 17:09] LABS: INR-International Normal Ratio 0.9; PTT 25.2 sec (22.9-36.1); Prothrombin Time 12.5 sec (12.0-14.7)
[2024-05-15 17:15] LABS: Acetaminophen Less than 10 mcg/mL (Less than 10); Alcohol Less than 10.0 mg/dL (Less than 10); Salicylate Less than 8.0 mg/dL (Less than 8.0)
[2024-05-15 17:18] LABS: Bacteria/HPF None Seen HPF (None Seen); Bilirubin Negative (Negative); Blood, Urine Negative (Negative); CAUTI Indications for Culture Dysuria,urgency,freq; Clarity Clear (Clear); Glucose, Urine (Dipstick) Greater than 1000 mg/dL (Negative); Ketone, Urine Negative (Negative); Leukocyte Negative Leu/uL (Negative); Nitrite Negative (Negative); Protein, Urine (Dipstick) Negative (Neg-Trace); RBC/HPF 0-3 HPF (0-3); Specific Gravity, Urine 1.044 (1.002-1.036); Squamous Epithelial None Seen HPF (0-3); Urobilinogen Normal mg/dL (Less than 2); WBC/HPF 0-3 HPF (0-3)
[2024-05-15 17:19] LABS: Troponin I 0.017 ng/mL (< 0.028)
[2024-05-15 17:20] LABS: Urine Culture Reflex No No
[2024-05-15 17:22] LABS: ALT (SGPT) 15 U/L (8-55); AST (SGOT) 11 U/L (5-34); Albumin 4.1 g/dL (3.5-5.0); Alkaline Phosphatase 167 U/L (40-110); Anion Gap 13 mmol/L (10-20); BUN (Urea Nitrogen) 15 mg/dL (8.4-25.7); Bilirubin, Total 0.4 mg/dL (0.2-1.2); Calc. Creatinine Clearance 0 mL/min (70-130); Calcium 9.8 mg/dL (7.8-10.44); Carbon Dioxide 26 mmol/L (22-29); Chloride 98 mmol/L (98-107); Estimated GFR 78; Globulin 3.2 g/dL (2.4-3.5); Glucose 470 mg/dL (70-105); Potassium 4.2 mmol/L (3.5-5.1); Protein, Total 7.3 g/dL (6.0-8.3); Sodium 133 mmol/L (136-145)
[2024-05-15 17:23] LABS: Amphetamine Not Detected (NotDetected); Barbiturates Screen Not Detected (NotDetected); Benzodiazepine Screen Not Detected (NotDetected); Cocaine Metabolite Screen Not Detected (NotDetected); Methadone Not Detected (NotDetected); Methamphetamine Not Detected (NotDetected); Opiate Screen Not Detected (NotDetected); Oxycodone Screen Not Detected (NotDetected); Phencyclidine (PCP) Not Detected (NotDetected); THC/Cannabinoid Screen Not Detected (NotDetected); Tricyclic Screen Not Detected (NotDetected)
== END 2024-05-15 19:55 ==
LOC: ERS 16:02 → EEVIPCON 16:02 → ERS 19:55
DX: E11.65 Type 2 diabetes mellitus with hyperglycemia (principal); R20.2 Paresthesia of skin; I10 Essential (primary) hypertension; F17.210 Nicotine dependence, cigarettes, uncomplicated; Z79.84 Long term (current) use of oral hypoglycemic drugs; Z79.4 Long term (current) use of insulin; Z79.82 Long term (current) use of aspirin; Z86.73 Personal history of transient ischemic attack (TIA), and cerebral infarction without residual deficits
CPT/HCPCS: 36416; 70496; 70498; 71045; 80053; 80306; 80307; 81001; 82010; 82805; 84484; 85025; 85610; 85730; 93005; Q9967

== ENCOUNTER 2024-05-20 17:10 | Emergency (ER) | payer SELFPAY ==
[2024-05-20] MEDS ORDERED: Ondansetron PF 4 MG/2 ML Vial ONE (20:36)
[2024-05-20] MEDS ORDERED: Aspirin Chewable 81 MG TAB ONE (20:36)
[2024-05-25 12:52] LABS: #Eosinophils 0.16 10x3/uL (0.0-0.7); #Neutrophils 2.54 10x3/uL (1.40-6.50); %Eosinophils 2.8 % (0.0-10.0); %Lymphocytes 44.8 % (21.0-51.0); %Monocytes 6.9 % (0.0-10.0); %Neutrophils 44.2 % (42.0-75.0); Hematocrit 45.1 % (42.0-52.0); Hemoglobin 15.5 g/dL (14.0-18.0); Mean Corpuscular HGB CONC 34.4 g/dL (32.0-36.0); Mean Corpuscular Hemoglobin 27.4 pg (27.0-31.0); Mean Corpuscular Volume 79.8 fL (78.0-98.0); Mean Platelet Volume 9.5 fL (7.4-10.4); Platelet Count 281 10x3/uL (130-400); RBC Distribution Width 13.4 % (11.5-14.5); Red Blood Cell (RBC) Count 5.56 mill/uL (4.70-6.10); White Blood Cell (WBC) Count 5.76 10x3/uL (4.8-10.8)
[2024-05-25 12:53] LABS: #Basophils 0.06 10x3/uL (0.0-0.2)
[2024-05-25 13:07] LABS: ALT (SGPT) 16 U/L (8-55); AST (SGOT) 9 U/L (5-34); Alkaline Phosphatase 155 U/L (40-110); Anion Gap 13 mmol/L (10-20); BUN (Urea Nitrogen) 17 mg/dL (8.4-25.7); Bilirubin, Total 0.5 mg/dL (0.2-1.2); Calc. Creatinine Clearance 0 mL/min (70-130); Calcium 9.9 mg/dL (7.8-10.44); Carbon Dioxide 26 mmol/L (22-29); Chloride 100 mmol/L (98-107); Estimated GFR 81; Globulin 3.6 g/dL (2.4-3.5); Glucose 464 mg/dL (70-105); Magnesium 1.8 mg/dL (1.6-2.6); Potassium 3.8 mmol/L (3.5-5.1); Protein, Total 7.6 g/dL (6.0-8.3); Sodium 135 mmol/L (136-145)
[2024-05-25 13:08] LABS: Critical Call Chemistry NUR.RRS @ 2120
[2024-05-25 13:09] LABS: Lactic Acid 1.09 mmol/L (0.5-2.2)
[2024-05-25 13:10] LABS: Troponin I Less than 0.010 ng/mL (< 0.028)
== END 2024-05-21 17:07 ==
LOC: ERS 17:10
DX: E11.65 Type 2 diabetes mellitus with hyperglycemia (principal); I11.0 Hypertensive heart disease with heart failure; I50.9 Heart failure, unspecified; I25.2 Old myocardial infarction; E78.5 Hyperlipidemia, unspecified; F17.210 Nicotine dependence, cigarettes, uncomplicated; Z86.73 Personal history of transient ischemic attack (TIA), and cerebral infarction without residual deficits; Z79.82 Long term (current) use of aspirin; Z79.84 Long term (current) use of oral hypoglycemic drugs; Z79.899 Other long term (current) drug therapy
CPT/HCPCS: 71045; 80053; 82010; 83605; 83735; 83880; 84484; 85025; 93005; 96374; 96375; J2405